=== PATIENT | male | born 1960 | race Caucasian/White ===

== ENCOUNTER 2022-12-03 14:32 | Emergency (ER) | payer OTHER, SELFPAY ==
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
[2022-12-03 14:46] VITALS: BP 134/93; PULSE 76; RESP 18; TEMP 36.7; O2SAT 99; BMI 28.1
[2022-12-03 16:05] VITALS: BP 130/94; PULSE 75; RESP 16; O2SAT 95
--- NOTE | 2022-12-03 16:29 | PC.NURSE ---
pt refusing IM toradol, explained med is for pain, pt continues to refuse, provider [place] aware
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
== END 2022-12-03 17:14 | disposition home or self-care (01) ==
PROVIDERS: Emergency Provider Emergency Medicine
DX: Z04.1 Encounter for examination and observation following transport accident (principal); M54.2 Cervicalgia; M54.50 Low back pain, unspecified; M25.562 Pain in left knee; M25.462 Effusion, left knee; M17.12 Unilateral primary osteoarthritis, left knee
CPT/HCPCS: 73562; 99282; 99283

== ENCOUNTER 2023-01-08 06:01 | Outpatient (REF) | payer OTHER, SELFPAY ==
--- NOTE | ~2023-01-08 | XR_ITS ---
EXAMINATION: XR KNEE, RIGHT XR KNEE, LEFT XR KNEE, BILATERAL STANDING CLINICAL INFORMATION: Knee pain. COMPARISON: 12/03/2022 of the left knee. TECHNIQUE: AP standing views of both knees. Patellar sunrise view of the left knee. AP and lateral views of the right knee. FINDINGS: LEFT KNEE: AP standing view of the left knee and patella sunrise view of the left knee performed. Left knee joint spaces are maintained. There is some mild spurring about the medial joint space compartment and medial facet of the patellofemoral joint. There is a 4 mm calcific density seen overlying the medial patellofemoral joint which may represent a loose body. Bony density about the medial condyle consistent with age indeterminate medial collateral ligament injury. RIGHT KNEE: There is no evidence of acute fracture or dislocation of the right knee. Right knee joint spaces are maintained. There is a small amount of suprapatellar fluid present. There is minimal spurring of the patellofemoral joint. XR/XR knee LT 1V IMPRESSION: Mild degenerative change of the patellofemoral joint with small effusion of the right knee. Bony density seen overlying the medial patellofemoral joint which may represent loose body. Evidence of medial collateral ligament avulsion injury of uncertain chronicity.
--- NOTE | ~2023-01-08 | XR_ITS ---
EXAMINATION: XR KNEE, RIGHT XR KNEE, LEFT XR KNEE, BILATERAL STANDING CLINICAL INFORMATION: Knee pain. COMPARISON: 12/03/2022 of the left knee. TECHNIQUE: AP standing views of both knees. Patellar sunrise view of the left knee. AP and lateral views of the right knee. FINDINGS: LEFT KNEE: AP standing view of the left knee and patella sunrise view of the left knee performed. Left knee joint spaces are maintained. There is some mild spurring about the medial joint space compartment and medial facet of the patellofemoral joint. There is a 4 mm calcific density seen overlying the medial patellofemoral joint which may represent a loose body. Bony density about the medial condyle consistent with age indeterminate medial collateral ligament injury. RIGHT KNEE: There is no evidence of acute fracture or dislocation of the right knee. Right knee joint spaces are maintained. There is a small amount of suprapatellar fluid present. There is minimal spurring of the patellofemoral joint. XR/XR knee standing BI IMPRESSION: Mild degenerative change of the patellofemoral joint with small effusion of the right knee. Bony density seen overlying the medial patellofemoral joint which may represent loose body. Evidence of medial collateral ligament avulsion injury of uncertain chronicity.
--- NOTE | ~2023-01-08 | XR_ITS ---
EXAMINATION: XR KNEE, RIGHT XR KNEE, LEFT XR KNEE, BILATERAL STANDING CLINICAL INFORMATION: Knee pain. COMPARISON: 12/03/2022 of the left knee. TECHNIQUE: AP standing views of both knees. Patellar sunrise view of the left knee. AP and lateral views of the right knee. FINDINGS: LEFT KNEE: AP standing view of the left knee and patella sunrise view of the left knee performed. Left knee joint spaces are maintained. There is some mild spurring about the medial joint space compartment and medial facet of the patellofemoral joint. There is a 4 mm calcific density seen overlying the medial patellofemoral joint which may represent a loose body. Bony density about the medial condyle consistent with age indeterminate medial collateral ligament injury. RIGHT KNEE: There is no evidence of acute fracture or dislocation of the right knee. Right knee joint spaces are maintained. There is a small amount of suprapatellar fluid present. There is minimal spurring of the patellofemoral joint. XR/XR knee RT 2V IMPRESSION: Mild degenerative change of the patellofemoral joint with small effusion of the right knee. Bony density seen overlying the medial patellofemoral joint which may represent loose body. Evidence of medial collateral ligament avulsion injury of uncertain chronicity.
== END 2023-01-08 06:02 | disposition home or self-care (01) ==
LOC: HO.HOSX 06:01
PROVIDERS: Visit Provider Physician Assistant
DX: M17.0 Bilateral primary osteoarthritis of knee (principal); M25.562 Pain in left knee; S80.02XD Contusion of left knee, subsequent encounter; S80.01XD Contusion of right knee, subsequent encounter; V89.2XXD Person injured in unspecified motor-vehicle accident, traffic, subsequent encounter
CPT/HCPCS: 73560; 73565; 99204

== ENCOUNTER 2023-01-08 08:43 | Outpatient (AMB) | payer MEDICAID, SELFPAY ==
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
[2023-01-08 08:53] VITALS: BMI 28.1
== END 2023-01-08 09:07 | disposition home or self-care (01) ==
PROVIDERS: Visit Provider Physician Assistant
DX: M17.0 Bilateral primary osteoarthritis of knee (principal); S80.02XA Contusion of left knee, initial encounter; S80.01XA Contusion of right knee, initial encounter
CPT/HCPCS: 99204